=== PATIENT | female | born 1970 | race Caucasian/White ===

== ENCOUNTER 2017-06-12 13:12 | Emergency (ER) | payer BC ==
[2017-06-12 14:40] VITALS: BP 118/72
--- NOTE | 2017-06-12 14:49 | RAD ---
Indication: LEFT ankle and foot pain following twisting injury. Comparison: No relevant prior exams available on the [facility]. Technique: AP, lateral, and oblique views LEFT foot. AP, lateral, and oblique views LEFT ankle. Report: Negative for fracture or articular malalignment at the ankle or foot. Suggestion of a small talocrural joint effusion. Mild soft tissue swelling over the lateral malleolus. Preserved joint spaces. Os peroneum accessory ossicles. IMPRESSION: Mild soft tissue swelling over the lateral malleolus and suggestion of small talocrural joint effusion without evidence for fracture or malalignment at the ankle or foot. Consider potential lateral supporting ligament injury at the ankle.
--- NOTE | 2017-06-12 14:49 | RAD ---
Indication: LEFT ankle and foot pain following twisting injury. Comparison: No relevant prior exams available on the [facility] [place] PACS for comparison. Technique: AP, lateral, and oblique views LEFT foot. AP, lateral, and oblique views LEFT ankle. Report: Negative for fracture or articular malalignment at the ankle or foot. Suggestion of a small talocrural joint effusion. Mild soft tissue swelling over the lateral malleolus. Preserved joint spaces. Os peroneum accessory ossicles. IMPRESSION: Mild soft tissue swelling over the lateral malleolus and suggestion of small talocrural joint effusion without evidence for fracture or malalignment at the ankle or foot. Consider potential lateral supporting ligament injury at the ankle.
--- NOTE | 2017-06-12 16:42 | ED ---
Stefanie Hansen Gabriel, scribed for Rolando Andrews MD on 06/12/17 at 1435 . 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 Pt was carrying her son and rotated her ankle (inversion injury), hearing a crack. The patient rates the pain 6/10 in severity. - History of Current Complaint Chief Complaint: EDExtremityLower Stated Complaint: FALL/LT ANKLE PAIN Time Seen by Provider: 06/12/17 14:06 Hx Obtained From: Patient Onset of Pain: Immediate Onset/Duration: Still Present Severity Initially: Moderate Severity Currently: Moderate Pain Intensity: 6 Pain Scale Used: 0-10 Numeric Associated Signs And Symptoms: Positive: Swelling, Other - LLE pain - Allergies/Home Medications Allergies/Adverse Reactions: Allergies Allergy/AdvReac Type Severity Reaction Status Date / Time No Known Allergies Allergy Verified 06/12/17 13:19 Home Medications: Home Medications NK [No Home Medications Reported] 06/12/17 [History Confirmed 06/12/17] PMH/Surg Hx/FS Hx/Imm Hx Cardiovascular History: Denies: Hx Pacemaker/ICD Respiratory History: Denies: Hx Chronic Obstructive Pulmonary Disease (COPD) History: Denies: Hx Renal Disease Musculoskeletal History: Denies: Hx Scoliosis Sensory History: Denies: Hx Hearing Aid Psychiatric History: Denies: Hx Panic Disorder - Cancer History Hx Chemotherapy: No Hx Radiation Therapy: No - Surgical History Surgery Procedure, Year, and Place: LEEP PROCEDURE,D&C Infectious Disease History: No Infectious Disease History: Denies: Traveled Outside the [place] in Last 30 Days - Family History Known Family History: Negative: Respiratory Disease, Seizure Disorder - Social History Occupation: Unemployed Lives: With Family Alcohol Use: None Substance Use Type: Reports: None Smoking Status (MU): Never Smoked Tobacco Have You Smoked in the Last Year: No Review of Systems Negative: Fever Positive: Edema - LLE , Other - LLE pain All Other Systems Reviewed And Are Negative: Yes Physical Exam - Summary Physical Exam Summary: Appearance: Well appearing, no pain distress Skin: warm, dry, reflects adequate perfusion Head/face: normal Eyes: EOMI, YUDI ENT: normal Neck: supple, non-tender Respiratory: CTA, breath sounds present Cardiovascular: RRR, pulses symmetrical Abdomen: non-tender, soft Bowel Sounds: present Musculoskeletal: normal, strength/ROM intact, no medial malleolus tenderness, no metatarsal or navicular tenderness. Swelling over the anterior talofibular ligament. Joint is stable, negative drawer Neuro: normal, sensory motor intact, A&Ox3 Triage Information Reviewed: Yes Vital Signs On Initial Exam: Initial Vitals Temp Pulse Resp BP Pulse Ox 98.4 F 67 15 119/74 100 06/12/17 13:15 06/12/17 13:15 06/12/17 13:15 06/12/17 13:15 06/12/17 13:15 Vital Signs Reviewed: Yes Procedures - Splinting Pre-Made Type: aircast Splint: posterior walking Pre-Proc Neuro Vasc Exam: normal Post-Proc Neuro Vasc Exam: normal Diagnostics - Vital Signs Vital Signs Temp Pulse Resp BP Pulse Ox 06/12/17 13:15 98.4 F 67 15 119/74 100 - Laboratory Lab Statement: Any lab studies that have been ordered have been reviewed, and results considered in the medical decision making process. - Radiology ankle xray Radiology Interpretation Completed By: Radiologist - Mild soft tissue swelling over the lateral malleolus and suggestion of small talocrural joint effusion without evidence for fracture or malalignment at the ankle or foot. Consider potential lateral supporting ligament injury at the ankle. ED physician has reviewed this radiology report foot xray Radiology Interpretation Completed By: Radiologist - Mild soft tissue swelling over the lateral malleolus and suggestion of small talocrural joint effusion without evidence for fracture or malalignment at the ankle or foot. Consider potential lateral supporting ligament injury at the ankle. ED physician has reviewed this radiology report Lower Extremity Course/Dx - Course Course Of Treatment: xrays neg. Airsplint applied. Ambulatory. - Diagnoses Differential Diagnosis/HQI/PQRI: Positive: Fracture (Closed), Sprain Provider Diagnoses: Right ankle sprain Discharge - Sign-Out/Discharge Documenting (check all that apply): Discharge - Discharge Plan Condition: Good Disposition: HOME Patient Education Materials: Ankle Sprain (ED) Referrals: Patricia Cortes MD [Primary Care Provider] - Additional Instructions: rest, ice, elevation and ibuprofen. Splint for comfort. Weight bear as tolerated. Range of motion exercises as discussed. Return if worse or other concerns. - Billing Disposition and Condition Condition: GOOD Disposition: HOME The documentation as recorded by the Stefanie lau Gabriel accurately reflects the service I personally performed and the decisions made by me, Rolando Andrews MD.
== END 2017-06-12 14:39 | disposition home or self-care (01) ==
LOC: ED 13:12
DX: S93.401A Sprain of unspecified ligament of right ankle, initial encounter (principal); X50.9XXA Other and unspecified overexertion or strenuous movements or postures, initial encounter; Y92.9 Unspecified place or not applicable
CPT/HCPCS: 99281